=== PATIENT | female | born 1950 | race African-American/Black ===

== ENCOUNTER 2018-09-04 09:40 | Observation (INO) | payer OTHER ==
--- NOTE | 2018-09-04 10:01 | PDOC ---
History of Present Illness - General Chief Complaint: Weakness Stated Complaint: Weakness Time Seen by Provider: 09/04/18 09:46 History Source: Patient - History of Present Illness Initial Comments: 68 yo [place] resident h/o HTN, depression, dementia, schizophrenia, anxiety, Parkinsons, Type I diabetes, and COPD sent from [facility] for weakness. Patient is demented and unable to provide reliable information. Per EMS, [facility] staff said she is basically at baseline but they are concerned with her well-being and believe she should come to the ED to get evaluated. 09/04/18 10:43 Spoke to [facility], nurse in charge stated that patient was sent to ER due to increasing weakness and confusion, which is off her baseline. Will recheck her rectal temp and do stroke workup if afebile 09/04/18 10:56 Rectal temp 100.3F, will begin sepsis workup 09/04/18 11:37 EKG no significant change compared to prior 09/04/18 12:58 Pt refused flu swab and CT head Past History - Past Medical History Allergies/Adverse Reactions: Allergies Allergy/AdvReac Type Severity Reaction Status Date / Time No Known Allergies Allergy Verified 04/27/16 21:32 Home Medications: Ambulatory Orders Albuterol 0.083% Nebulizer Ashley [Ventolin 0.083% Nebulizer Soln -] 1 amp IN QID PRN 09/04/18 Aspirin 81 mg PO DAILY 09/04/18 Atorvastatin Calcium [Lipitor] 10 mg PO HS 09/04/18 Carbamazepine [Tegretol -] 200 mg PO BID 09/04/18 Furosemide [Lasix -] 40 mg PO DAILY 09/04/18 Haloperidol Decanoate [Haldol Decanoate 100] 100 mg IM MONTHLY 09/04/18 Insulin Glargine,Hum.rec.anlog [Lantus] 28 unit SQ HS 09/04/18 Insulin Lispro [Humalog] unit SQ TID 09/04/18 Lisinopril [Zestril] 40 mg PO DAILY 09/04/18 Magnesium Hydrox 2400MG/30Ml [Milk of Magnesia -] 30 ml PO ASDIR 09/04/18 Metoprolol Tartrate [Lopressor -] 25 mg PO DAILY 09/04/18 Nystatin 30 gm TP BID 09/04/18 Olanzapine [Zyprexa] 20 mg PO HS 09/04/18 Ranitidine [Zantac -] 150 mg PO DAILY 09/04/18 Rivastigmine Tartrate [Exelon (Nf) -] 4.5 mg PO BID 09/04/18 Sennosides [Senno] 8.6 mg PO HS 09/04/18 Tamsulosin HCl [Flomax] 0.4 mg PO DAILY 09/04/18 Anemia: No COPD: Yes Dementia: Yes Diabetes: Yes HTN: Yes Psychiatric Problems: Yes (SCHIZOPHRENIA, BIPOLAR,ANXIETY,) - Immunization History Immunization Up to Date: Yes - Suicide/Smoking/Psychosocial Hx Smoking History: Unknown if ever smoked Have you smoked in the past 12 months: Yes Number of Cigarettes Smoked Daily: 3 Hx Alcohol Use: No Drug/Substance Use Hx: No Substance Use Type: None Hx Substance Use Treatment: No *Physical Exam - Vital Signs Last Vital Signs Temp Pulse Resp BP Pulse Ox 98.6 F 59 L 18 130/78 95 09/04/18 09:42 09/04/18 09:42 09/04/18 09:42 09/04/18 09:42 09/04/18 09:42 - Physical Exam Respiratory/Chest: positive: Lungs Clear, Normal Breath Sounds Cardiovascular: positive: Regular Rhythm, Regular Rate, S1, S2. negative: Edema , JVD, Murmur Gastrointestinal/Abdominal: positive: Normal Bowel Sounds Neurologic: positive: Facial Droop, Numbness, Sensory Deficit, Confused, Disoriented Moderate Sedation - Procedure Monitoring Vital Signs: Procedure Monitoring Vital Signs Temperature 98.6 F 09/04/18 09:42 Pulse Rate 59 L 09/04/18 09:42 Respiratory Rate 18 09/04/18 09:42 Blood Pressure 130/78 09/04/18 09:42 O2 Sat by Pulse Oximetry (%) 95 09/04/18 09:42 ED Treatment Course - LABORATORY CBC & Chemistry Diagram: 09/04/18 11:08 09/04/18 11:08 *DC/Admit/Observation/Transfer Diagnosis at time of Disposition: Weakness Fever Qualifiers: Fever type: unspecified Qualified Code(s): R50.9 - Fever, unspecified Altered mental status Qualifiers: Altered mental status type: unspecified Qualified Code(s): R41.82 - Altered mental status, unspecified - Discharge Dispostion Decision to Admit order: Yes - Referrals Referrals: Molly Santiago MD [Primary Care Provider] - - Patient Instructions - Post Discharge Activity
--- NOTE | 2018-09-04 11:04 | PDOC ---
Attending Attestation - Resident Resident Name: Gopi Celis - [facility] HPI: 09/04/18 11:05 The patient is a 68 year old male, with a significant past medical history of dementia, depression, schizophrenia, diabetes, who presents to the emergency department via ems from [facility] for evaluation of increasing weakness and confusion in the setting of fever today. The patient is unable to provide history. As per nursing staff, the patient is not at baseline. Allergies: NKDA PCP - Dr. Santiago - Physicial Exam PE: 09/04/18 11:06 GENERAL: The patient is awake, alert, and fully oriented, in no acute distress. HEAD: Normal with no signs of trauma. EYES: Pupils equal, round and reactive to light, extraocular movements intact, sclera anicteric, conjunctiva clear with no pallor. ENT: Ears normal, nares patent, oropharynx clear without exudates. Moist mucous membranes. NECK: Normal range of motion, supple without lymphadenopathy, JVD, or masses. LUNGS: Breath sounds equal, clear to auscultation bilaterally. No wheeze/ crackles. HEART: Regular rate and rhythm, normal S1 and S2 without murmur or rub. ABDOMEN: (+) grimacing to suprapubic palpation. Soft/nondistended. BS wnl. No guarding or rebound. No palpable masses. No hepatosplenomegaly. EXTREMITIES: Normal range of motion, no edema. No clubbing or cyanosis. No cords, erythema, or tenderness. NEUROLOGICAL: Baseline neuro deficits. baseline facial droop. Cranial nerves II through XII grossly intact. SKIN: Warm, Dry, normal turgor, no rashes or lesions noted. <Cammie Moreno - Last Filed: 09/04/18 11:08> - Critical Care Time Total Critical Care Time: 30 Critical Care Statement: The care of this patient involved high complexity decision making to prevent further life threatening deterioration of the patient 's condition and/or to evaluate & treat vital organ system(s) failure or risk of failure. - Medical Decision Making 09/04/18 11:19 68y/o F sent [place] with AMS/increased generalized weakness. h/o cva without new deficits, found to be febrile on rectal temp. sepsis protocol initiated antibiotics, anti-pyretics cxr, ekg admission <Ezra Espinoza - Last Filed: 09/04/18 11:32> Heart Score/ECG Review #1 ECG reviewed & interpreted by me at: 11:19 General ECG Interpretation: Sinus Rhythm (slight bradycardia, LVH with lateral strain pattern), Normal Rate (51), Normal Intervals (qtc 414; LAFB) Compared to previous ECG there are: No significant change (c/w 04/2016) <Ezra Espinoza - Last Filed: 09/04/18 11:32> Attestations - Attestations 09/04/18 11:07 Documentation prepared by Cammie Moreno, acting as medical laboratory technical officer for Ezra Espinoza MD <Cammie Moreno - Last Filed: 09/04/18 11:08>
[2018-09-04 11:25] LABS: BASO % 0.3 % (0-2.0); EOS % 1.4 % (0-4.5); HEMATOCRIT 37.3 % (32.4-45.2); HEMOGLOBIN 12.6 GM/dL (10.7-15.3); LYMPH % 22.6 % (8-40); MCH 26.8 pg (25.7-33.7); MCHC 33.8 g/dl (32.0-36.0); MEAN CELL VOLUME 79.4 fl (80-96); MEAN PLT VOLUME 8.1 fl (7.5-11.1); MONO % 12.1 % (3.8-10.2); NEUT % 63.6 % (42.8-82.8); PLATELET COUNT 295 K/MM3 (134-434); RDW 15.3 % (11.6-15.6); WHITE BLOOD COUNT 8.4 K/mm3 (4.0-10.0)
[2018-09-04 11:47] LABS: URINE APPEARANCE CLEAR; URINE BILIRUBIN NEGATIVE (<2.0 mg/dL); URINE COLOR YELLOW; URINE GLUCOSE (UA) NEGATIVE (NEGATIVE); URINE KETONE NEGATIVE (NEGATIVE)
[2018-09-04 11:48] LABS: PH,URINE 5.5 (5.0-8.0); URINE LEUK ESTERASE NEGATIVE (NEGATIVE); URINE NITRITE NEGATIVE (NEGATIVE); URINE PROTEIN TRACE (NEGATIVE); URINE UROBILINOGEN 0.2 mg/dL (0.2-1.0)
[2018-09-04] MEDS ORDERED: ACETAMINOPHEN 1000 MG/100 ML VIAL (NON FORMULARY) IVPB ONE (11:54)
[2018-09-04] MEDS ORDERED: ACETAMINOPHEN 500 MG TABLET (FP) PO ONE (11:55)
[2018-09-04] MEDS ORDERED: ACETAMINOPHEN 325 MG TABLET (FP) ONE (12:05)
[2018-09-04 12:13] LABS: ALBUMIN 3.2 g/dl (3.4-5.0); ALK PHOS 92 U/L (45-117); ANION GAP 5 MMOL/L (8-16); BILIRUBIN,TOTAL 0.4 mg/dL (0.2-1); BLOOD UREA NITROGEN 29 mg/dL (7-18); CALCIUM 9.2 mg/dL (8.5-10.1); CHLORIDE 102 mmol/L (98-107); CO2 35 mmol/L (21-32); CREATININE 1.5 mg/dL (0.55-1.3); GLUCOSE,RANDOM 76 mg/dL (74-106); MAGNESIUM 2.3 mg/dL (1.8-2.4); PHOSPHOROUS 3.9 mg/dL (2.5-4.9); POTASSIUM 3.7 mmol/L (3.5-5.1); SGOT/AST 34 U/L (15-37); SGPT/ALT 22 U/L (13-61); SODIUM 142 mmol/L (136-145); TOT PROT 8.4 g/dl (6.4-8.2)
[2018-09-04 12:41] LABS: PROTHROMBIN TIME (PATIENT) 11.8 SEC (9.7-13.0)
[2018-09-04 12:44] LABS: ACTIVATED PTT 29.7 SECONDS (25.2-36.5)
[2018-09-04 13:31] LABS: VENOUS PC02 60.9 mmHg (41-51); VENOUS PH 7.38 (7.31-7.41); VENOUS PO2 36.6 mmHg (30-40)
[2018-09-04] MEDS ORDERED: ALBUTEROL SO4 0.083% IH SOL 2.5 MG/3 ML VIAL.NEB. NEB PRN (14:03)
[2018-09-04 16:27] VITALS: BMI 29.2
[2018-09-04] MEDS: INSULIN SLIDING SCALE (NOVOLOG) 1 VIAL SQ SCH (17:26)
[2018-09-04] MEDS: RIVASTIGMINE TARTRATE 1.5 MG CAPSULE PO SCH (22:06)
[2018-09-04] MEDS: ATORVASTATIN CA 10 MG TABLET (FP) PO SCH (22:07)
[2018-09-04] MEDS: SENNOSIDES 8.6MG TABLET (FP) PO SCH (22:08)
[2018-09-04] MEDS: carBAMazepine 200 MG TABLET PO SCH (22:08)
[2018-09-04] MEDS: INSULIN (LEVEMIR) 100 UNITS/ML UNITS SQ SCH (22:11)
[2018-09-04] MEDS: OLANZapine 10 MG TABLET PO SCH (22:15)
[2018-09-05] MEDS: INSULIN SLIDING SCALE (NOVOLOG) 1 VIAL SQ SCH ×3 (06:22→17:11)
[2018-09-05] MEDS ORDERED: PT OWN MED DRAWER 7, Y5N ONE ×3 (07:11→10:30)
[2018-09-05] MEDS ORDERED: INSULIN (NOVOLOG) ASPART 100 UNITS/ML 10ML VIAL ONE (07:12)
[2018-09-05] MEDS ORDERED: INSULIN (LEVEMIR) 100 UNITS/ML UNITS SQ ONE (07:12)
[2018-09-05] MEDS: FUROSEMIDE 40 MG TABLET (FP) PO SCH (10:26)
[2018-09-05] MEDS: RANITIDINE HCL 150 MG TABLET (FP) PO SCH (10:26)
[2018-09-05] MEDS: ASPIRIN 81 MG CHEWABLE TABLETS PO SCH (10:26)
[2018-09-05] MEDS: METOPROLOL TARTRATE 25 MG TABLET (FP) PO SCH (10:26)
[2018-09-05] MEDS: carBAMazepine 200 MG TABLET PO SCH ×2 (10:27→23:12)
[2018-09-05] MEDS: RIVASTIGMINE TARTRATE 1.5 MG CAPSULE PO SCH ×2 (10:27→23:11)
[2018-09-05] MEDS: LISINOPRIL 20 MG TABLET (FP) PO SCH (10:31)
--- NOTE | 2018-09-05 10:37 | HP ---
Admitting History and Physical - Primary Care Physician PCP: Molly Santiago - Admission History of Present Illness: patient seen and examined. Chart reviewed As per emergency room records 68 yo [place] resident h/o HTN, depression, dementia, schizophrenia, anxiety, Parkinsons, Type I diabetes, and COPD sent from [facility] for weakness. Patient is demented and unable to provide reliable information. Per EMS, [facility] staff said she is basically at baseline but they are concerned with her well-being and believe she should come to the ED to get evaluated. patient noted to have low-grade temperature Given broad-spectrum antibiotics Flu was negative Chest x-ray----atelectasis----no acute infiltrate CT head----no acute findings Patient admitted Patient comfortable at time of my examination Back to baseline now complains History Source: Medical Record Limitations to Obtaining History: Clinical Condition, Dementia - Past Medical History Cardiovascular: Yes: HTN, Hyperlipdemia Pulmonary: Yes: COPD ...: No Psych: Yes: Bipolar, Schizophrenia Endocrine: Yes: Diabetes Mellitus - Smoking History Smoking history: Unknown if ever smoked Have you smoked in the past 12 months: No Aproximately how many cigarettes per day: 0 - Alcohol/Substance Use Hx Alcohol Use: No - Social History History of Recent Travel: No Home Medications - Allergies Allergies/Adverse Reactions: Allergies Allergy/AdvReac Type Severity Reaction Status Date / Time No Known Allergies Allergy Verified 04/27/16 21:32 - Home Medications Home Medications: Ambulatory Orders Albuterol 0.083% Nebulizer Ashley [Ventolin 0.083% Nebulizer Soln -] 1 amp IN QID PRN 09/04/18 Aspirin 81 mg PO DAILY 09/04/18 Atorvastatin Calcium [Lipitor] 10 mg PO HS 09/04/18 Carbamazepine [Tegretol -] 200 mg PO BID 09/04/18 Furosemide [Lasix -] 40 mg PO DAILY 09/04/18 Haloperidol Decanoate [Haldol Decanoate 100] 100 mg IM MONTHLY 09/04/18 Insulin Glargine,Hum.rec.anlog [Lantus] 28 unit SQ HS 09/04/18 Insulin Lispro [Humalog] unit SQ TID 09/04/18 Lisinopril [Zestril] 40 mg PO DAILY 09/04/18 Magnesium Hydrox 2400MG/30Ml [Milk of Magnesia -] 30 ml PO ASDIR 09/04/18 Metoprolol Tartrate [Lopressor -] 25 mg PO DAILY 09/04/18 Nystatin 30 gm TP BID 09/04/18 Olanzapine [Zyprexa] 20 mg PO HS 09/04/18 Ranitidine [Zantac -] 150 mg PO DAILY 09/04/18 Rivastigmine Tartrate [Exelon (Nf) -] 4.5 mg PO BID 09/04/18 Sennosides [Senno] 8.6 mg PO HS 09/04/18 Tamsulosin HCl [Flomax] 0.4 mg PO DAILY 09/04/18 Review of Systems - Review of Systems Constitutional: reports: No Symptoms Eyes: reports: No Symptoms Neck: reports: No Symptoms Cardiovascular: reports: No Symptoms Respiratory: reports: No Symptoms Gastrointestinal: reports: No Symptoms Neurological: reports: No Symptoms Psychiatric: reports: Other (calm) Physical Examination Vital Signs: Vital Signs Temperature 98.1 F 09/05/18 09:05 Pulse Rate 59 L 09/05/18 09:05 Respiratory Rate 18 09/05/18 09:05 Blood Pressure 172/75 H 09/05/18 09:05 O2 Sat by Pulse Oximetry (%) 95 09/05/18 00:52 Constitutional: Yes: No Distress, Calm Eyes: Yes: Conjunctiva Clear Neck: Yes: Supple Cardiovascular: Yes: Regular Rate and Rhythm Respiratory: Yes: Rhonchi Gastrointestinal: Yes: Normal Bowel Sounds, Soft Edema: No Neurological: Yes: Alert Labs: CBC, BMP 09/04/18 11:08 09/04/18 11:08 Imaging - Results Chest X-ray: Report Reviewed Cat Scan: Report Reviewed EKG: Report Reviewed Problem List - Problems (1) Chronic obstructive pulmonary disease Code(s): J44.9 - CHRONIC OBSTRUCTIVE PULMONARY DISEASE, UNSPECIFIED (2) Renal insufficiency Code(s): N28.9 - DISORDER OF KIDNEY AND URETER, UNSPECIFIED (3) Altered mental status Code(s): R41.82 - ALTERED MENTAL STATUS, UNSPECIFIED Qualifiers: Altered mental status type: unspecified Qualified Code(s): R41.82 - Altered mental status, unspecified (4) Fever Code(s): R50.9 - FEVER, UNSPECIFIED Qualifiers: Fever type: unspecified Qualified Code(s): R50.9 - Fever, unspecified (5) Diabetes Code(s): E11.9 - TYPE 2 DIABETES MELLITUS WITHOUT COMPLICATIONS Qualifiers: Diabetes mellitus type: type 2 Diabetes mellitus terminal clerk insulin use: without terminal clerk use Diabetes mellitus complication status: with unspecified complications Qualified Code(s): E11.8 - Type 2 diabetes mellitus with unspecified complications (6) Hypertension Code(s): I10 - ESSENTIAL (PRIMARY) HYPERTENSION Qualifiers: Hypertension type: essential hypertension Qualified Code(s): I10 - Essential (primary) hypertension (7) Parkinson disease Code(s): G20 - PARKINSON'S DISEASE (8) Schizophrenia Code(s): F20.9 - SCHIZOPHRENIA, UNSPECIFIED Qualifiers: Schizophrenia type: unspecified Qualified Code(s): F20.9 - Schizophrenia, unspecified Assessment/Plan clinically comfortable Monitor for fever observe off abx ct chest u/s kidneys dvt prophylaxis will follow
--- NOTE | 2018-09-05 11:11 | EKG ---
Test Reason : Blood Pressure : / mmHG Vent. Rate : 051 BPM Atrial Rate : 051 BPM P-R Int : 194 ms QRS Dur : 120 ms QT Int : 450 ms P-R-T Axes : 029 -53 189 degrees QTc Int : 414 ms SINUS BRADYCARDIA LEFT ANTERIOR FASCICULAR BLOCK LEFT VENTRICULAR HYPERTROPHY WITH QRS WIDENING ABNORMAL ECG Confirmed by YANET FISHER MD ([id number]) on 09/05/2018 11:11:21 AM Referred By: Confirmed By:YANET FISHER MD
[2018-09-05] MEDS: INSULIN (LEVEMIR) 100 UNITS/ML UNITS SQ SCH ×2 (22:00→23:12)
[2018-09-05] MEDS: SENNOSIDES 8.6MG TABLET (FP) PO SCH (23:11)
[2018-09-05] MEDS: HEPARIN NA (PORCINE) 5,000 UNITS/ML 1ML VIAL SQ SCH (23:11)
[2018-09-05] MEDS: ATORVASTATIN CA 10 MG TABLET (FP) PO SCH (23:11)
[2018-09-05] MEDS: OLANZapine 10 MG TABLET PO SCH (23:11)
[2018-09-06] MEDS: ACETAMINOPHEN 325 MG TABLET (FP) PO PRN ×2 (00:53→22:17)
[2018-09-06] MEDS: INSULIN SLIDING SCALE (NOVOLOG) 1 VIAL SQ SCH ×3 (06:26→17:43)
[2018-09-06 06:55] LABS: BASO % 0.8 % (0-2.0); EOS % 3.7 % (0-4.5); HEMOGLOBIN 12.2 GM/dL (10.7-15.3); LYMPH % 43.3 % (8-40); MCH 26.7 pg (25.7-33.7); MCHC 33.9 g/dl (32.0-36.0); MEAN CELL VOLUME 78.6 fl (80-96); MEAN PLT VOLUME 7.9 fl (7.5-11.1); MONO % 11.1 % (3.8-10.2); NEUT % 41.1 % (42.8-82.8); PLATELET COUNT 288 K/MM3 (134-434); RBC 4.58 M/mm3 (3.60-5.2); RDW 14.9 % (11.6-15.6); WHITE BLOOD COUNT 5.8 K/mm3 (4.0-10.0)
[2018-09-06 07:48] LABS: ALBUMIN 2.8 g/dl (3.4-5.0); ALK PHOS 77 U/L (45-117); ANION GAP 5 MMOL/L (8-16); BILIRUBIN,TOTAL 0.3 mg/dL (0.2-1); BLOOD UREA NITROGEN 30 mg/dL (7-18); CALCIUM 9.1 mg/dL (8.5-10.1); CHLORIDE 105 mmol/L (98-107); CO2 34 mmol/L (21-32); CREATININE 1.2 mg/dL (0.55-1.3); GLUCOSE,RANDOM 73 mg/dL (74-106); POTASSIUM 3.5 mmol/L (3.5-5.1); SGOT/AST 25 U/L (15-37); SGPT/ALT 18 U/L (13-61); SODIUM 144 mmol/L (136-145); TOT PROT 7.6 g/dl (6.4-8.2)
[2018-09-06] MEDS ORDERED: PT OWN MED DRAWER 7, Y5N ONE ×3 (09:48→21:17)
[2018-09-06] MEDS: ASPIRIN 81 MG CHEWABLE TABLETS PO SCH (10:18)
[2018-09-06] MEDS: HEPARIN NA (PORCINE) 5,000 UNITS/ML 1ML VIAL SQ SCH ×2 (10:18→22:14)
[2018-09-06] MEDS: LISINOPRIL 20 MG TABLET (FP) PO SCH (10:19)
[2018-09-06] MEDS: RANITIDINE HCL 150 MG TABLET (FP) PO SCH (10:19)
[2018-09-06] MEDS: RIVASTIGMINE TARTRATE 1.5 MG CAPSULE PO SCH ×2 (10:19→22:16)
[2018-09-06] MEDS: METOPROLOL TARTRATE 25 MG TABLET (FP) PO SCH (10:20)
[2018-09-06] MEDS: carBAMazepine 200 MG TABLET PO SCH ×2 (10:20→22:17)
[2018-09-06] MEDS: FUROSEMIDE 40 MG TABLET (FP) PO SCH (10:20)
--- NOTE | 2018-09-06 10:58 | CON.CARD ---
Consult Consult Specialty:: Cardiology Referred by:: Dr. Molly Santiago Reason for Consultation:: Cardiac evaluation - History of Present Illness Chief Complaint: Generalized weakness History of Present Illness: Patient is a 68 year old female (resident of [place]) with underlying history of HTN , depression, organic brain/dementia, schizophrenia, anxiety, Parkinson's disease, DM and COPD who presented with weakness from the [place]. History was obtained from medical record. She denies chest pain, SOB or palpitations. She denies fever or chills. She denies headache or lightheadedness. ECG was noted with T wave inversion in inferior and lateral leads thus cardiology consultation was called prior to discharge today back to [place]. Overall, she appears comfortable when seen today. CT of head was unremarkable without evidence of CVA. She was given empiric antibiotic for low grade fever. - History Source History Provided By: Patient, Medical Record Limitations to Obtaining History: Dementia - Past Medical History Cardio/Vascular: Yes: HTN, Hyperlipdemia Pulmonary: Yes: COPD Psych: Yes: Bipolar, Schizophrenia Endocrine: Yes: Diabetes Mellitus - Alcohol/Substance Use Hx Alcohol Use: No - Smoking History Smoking history: Unknown if ever smoked Have you smoked in the past 12 months: No Aproximately how many cigarettes per day: 0 - Social History Usual Living Arrangement: [facility] History of Recent Travel: No Home Medications - Allergies Allergies/Adverse Reactions: Allergies Allergy/AdvReac Type Severity Reaction Status Date / Time No Known Allergies Allergy Verified 04/27/16 21:32 - Home Medications Home Medications: Ambulatory Orders Albuterol 0.083% Nebulizer Ashley [Ventolin 0.083% Nebulizer Soln -] 1 amp IN QID PRN 09/04/18 Aspirin 81 mg PO DAILY 09/04/18 Atorvastatin Calcium [Lipitor] 10 mg PO HS 09/04/18 Carbamazepine [Tegretol -] 200 mg PO BID 09/04/18 Furosemide [Lasix -] 40 mg PO DAILY 09/04/18 Haloperidol Decanoate [Haldol Decanoate (Long-Acting) -] 100 mg IM MONTHLY 09/04 Insulin Glargine,Hum.rec.anlog [Lantus] 28 unit SQ HS 09/04/18 Insulin Lispro [Humalog Kwikpen U-100] unit SQ TID 09/04/18 Lisinopril [Zestril] 40 mg PO DAILY 09/04/18 Magnesium Hydrox 2400MG/30Ml [Milk of Magnesia -] 30 ml PO ASDIR 09/04/18 Metoprolol Tartrate [Lopressor -] 25 mg PO DAILY 09/04/18 Nystatin 30 gm TP BID 09/04/18 Olanzapine [Zyprexa] 20 mg PO HS 09/04/18 Ranitidine [Zantac -] 150 mg PO DAILY 09/04/18 Rivastigmine Tartrate [Exelon (Nf) -] 4.5 mg PO BID 09/04/18 Sennosides [Senno] 8.6 mg PO HS 09/04/18 Tamsulosin HCl [Flomax -] 0.4 mg PO DAILY 09/04/18 Acetaminophen [Tylenol .Regular Strength -] 650 mg PO Q4H PRN tablet 09/06/18 Heparin - 5,000 unit SQ BID vial 09/06/18 Family Disease History - Family Disease History Family History: Unable to Obtain Review of Systems - Review of Systems Constitutional: reports: Weakness. denies: Chills, Fever Cardiovascular: denies: Chest Pain, Palpitations, Shortness of Breath Respiratory: denies: Cough, Orthopnea, PND, SOB, SOB on Exertion Gastrointestinal: denies: Abdominal Pain, Constipation, Diarrhea, Melena, Nausea , Rectal Bleeding Neurological: denies: Dizziness, Headache, Seizure, Syncope Vital Signs: Vital Signs Temperature 97.7 F 09/06/18 10:00 Pulse Rate 64 09/06/18 10:00 Respiratory Rate 20 09/06/18 10:00 Blood Pressure 151/79 09/06/18 10:00 O2 Sat by Pulse Oximetry (%) 96 09/05/18 22:00 HENT: Yes: Atraumatic Neck: Yes: Supple Respiratory: Yes: CTA Bilaterally Gastrointestinal: Yes: Normal Bowel Sounds, Soft. No: Tenderness Cardiovascular: Yes: Regular Rate and Rhythm JVD: No PMI: Non-Displaced Heart Sounds: Yes: S1, S2 Edema: No - Other Data Labs, Other Data: CBC, BMP 09/06/18 05:20 09/06/18 05:20 INR, PTT INR 1.00 (0.83-1.09) 09/04/18 11:08 Sinus with T abnormality in inferior and lateral leads, LVH Imaging - Results Chest X-ray: Report Reviewed (Right basal atelectasis) Cat Scan: Report Reviewed (Chest CT noted Head CT noted moderate atrophy) EKG: Report Reviewed Problem List - Problems (1) Hypercholesterolemia Code(s): E78.00 - PURE HYPERCHOLESTEROLEMIA, UNSPECIFIED (2) Altered mental status Code(s): R41.82 - ALTERED MENTAL STATUS, UNSPECIFIED Qualifiers: Altered mental status type: unspecified Qualified Code(s): R41.82 - Altered mental status, unspecified (3) Chronic obstructive pulmonary disease Code(s): J44.9 - CHRONIC OBSTRUCTIVE PULMONARY DISEASE, UNSPECIFIED (4) Renal insufficiency Code(s): N28.9 - DISORDER OF KIDNEY AND URETER, UNSPECIFIED (5) Diabetes Code(s): E11.9 - TYPE 2 DIABETES MELLITUS WITHOUT COMPLICATIONS Qualifiers: Diabetes mellitus type: type 2 Diabetes mellitus assisted insulin use: without assisted use Diabetes mellitus complication status: with unspecified complications Qualified Code(s): E11.8 - Type 2 diabetes mellitus with unspecified complications (6) Hypertension Code(s): I10 - ESSENTIAL (PRIMARY) HYPERTENSION Qualifiers: Hypertension type: essential hypertension Qualified Code(s): I10 - Essential (primary) hypertension (7) Parkinson disease Code(s): G20 - PARKINSON'S DISEASE (8) Schizophrenia Code(s): F20.9 - SCHIZOPHRENIA, UNSPECIFIED Qualifiers: Schizophrenia type: unspecified Qualified Code(s): F20.9 - Schizophrenia, unspecified Assessment/Plan 1. Abnormal ECG, possible underlying CAD vs. LVH due to HTN 2. HTN 3. Hypercholesterolemia 4. DM 5. Bipolar/schizophrenia 6. Organic brain/dementia PLAN: 1. Continue Lopressor and Prinivil as tolerated 2. ASA 3. Atorvastatin 4. Patient may return to [place] cardiac standpoint. 5. Further work up may be done in the future as outpatient including echocardiography and stress testing if clinically feasible. Otherwise continue conservative management John Lara MD
--- NOTE | 2018-09-06 11:00 | DS ---
Physical Examination Vital Signs: Vital Signs Temperature 97.7 F 09/06/18 10:00 Pulse Rate 64 09/06/18 10:00 Respiratory Rate 20 09/06/18 10:00 Blood Pressure 151/79 09/06/18 10:00 O2 Sat by Pulse Oximetry (%) 96 09/05/18 22:00 Findings/Remarks: feels well no complains Baseline afebrile Constitutional: Yes: No Distress Eyes: Yes: Conjunctiva Clear Neck: Yes: Supple Cardiovascular: Yes: Regular Rate and Rhythm Respiratory: Yes: CTA Bilaterally Gastrointestinal: Yes: Soft Edema: No Neurological: Yes: Alert Psychiatric: Yes: Alert Labs: CBC, BMP 09/06/18 05:20 09/06/18 05:20 Discharge Summary Reason For Visit: FEVER;WEAKNESS;ALTERED MENTAL STATUS Current Active Problems Altered mental status (Acute) Chronic obstructive pulmonary disease (Acute) Fever (Acute) Renal insufficiency (Acute) Weakness (Acute) Hospital Course: 68 yo [place] resident h/o HTN, depression, dementia, schizophrenia, anxiety, Parkinsons, Type I diabetes, and COPD sent from [facility] for weakness. noted to have low grade temp. observed off abx ct chest -- see report-- in summary shows Left Thyromegaly-- Do u/s as out pt-- will add tsh to todays labs Unchanged small Anterior mediastinal LN Stable Adrenal Adenoma s/p cholecystectomy No acute chest pathology u/s kidneys -- no acute pathology Abnormal EKg-- Cardiology consult requested overall stable will d/c back to [facility] after cardiology eval Discussed with nursing staff also. Meds reconcilled also cultures -ve so far Condition: Stable - Instructions Disposition: RETIREMENT FACILITY - Home Medications Comprehensive Discharge Medication List: Ambulatory Orders Albuterol 0.083% Nebulizer Ashley [Ventolin 0.083% Nebulizer Soln -] 1 amp IN QID PRN 09/04/18 Aspirin 81 mg PO DAILY 09/04/18 Atorvastatin Calcium [Lipitor] 10 mg PO HS 09/04/18 Carbamazepine [Tegretol -] 200 mg PO BID 09/04/18 Furosemide [Lasix -] 40 mg PO DAILY 09/04/18 Haloperidol Decanoate [Haldol Decanoate (Long-Acting) -] 100 mg IM MONTHLY 09/04 Insulin Glargine,Hum.rec.anlog [Lantus] 28 unit SQ HS 09/04/18 Insulin Lispro [Humalog Kwikpen U-100] unit SQ TID 09/04/18 Lisinopril [Zestril] 40 mg PO DAILY 09/04/18 Magnesium Hydrox 2400MG/30Ml [Milk of Magnesia -] 30 ml PO ASDIR 09/04/18 Metoprolol Tartrate [Lopressor -] 25 mg PO DAILY 09/04/18 Nystatin 30 gm TP BID 09/04/18 Olanzapine [Zyprexa] 20 mg PO HS 09/04/18 Ranitidine [Zantac -] 150 mg PO DAILY 09/04/18 Rivastigmine Tartrate [Exelon (Nf) -] 4.5 mg PO BID 09/04/18 Sennosides [Senno] 8.6 mg PO HS 09/04/18 Tamsulosin HCl [Flomax -] 0.4 mg PO DAILY 09/04/18 Acetaminophen [Tylenol .Regular Strength -] 650 mg PO Q4H PRN tablet 09/06/18 Heparin - 5,000 unit SQ BID vial 09/06/18
[2018-09-06] MEDS ORDERED: INSULIN (NOVOLOG) ASPART 100 UNITS/ML 10ML VIAL ONE (21:16)
[2018-09-06] MEDS: SENNOSIDES 8.6MG TABLET (FP) PO SCH (22:15)
[2018-09-06] MEDS: ATORVASTATIN CA 10 MG TABLET (FP) PO SCH (22:15)
[2018-09-06] MEDS: OLANZapine 10 MG TABLET PO SCH (22:15)
[2018-09-07] MEDS: INSULIN SLIDING SCALE (NOVOLOG) 1 VIAL SQ SCH ×3 (06:12→16:21)
[2018-09-07] MEDS ORDERED: INSULIN (LEVEMIR) 100 UNITS/ML UNITS SQ ONE (07:01)
[2018-09-07] MEDS ORDERED: INSULIN (NOVOLOG) ASPART 100 UNITS/ML 10ML VIAL ONE ×2 (07:02→20:57)
--- NOTE | 2018-09-07 09:18 | PN ---
Progress Note, Physician Chief Complaint: Not in distress History of Present Illness: Patient was seen and examined. Awake and alert. Chart was reviewed Denies chest pain, SOB or palpitations - Current Medication List Current Medications: Active Medications Acetaminophen (Tylenol -) 650 mg PO Q4H PRN PRN Reason: PAIN LEVEL 6-10 Last Admin: 09/06/18 22:17 Dose: 650 mg Albuterol Sulfate (Ventolin 0.083% Nebulizer Soln -) 1 amp NEB Q6H PRN PRN Reason: ASTHMA Aspirin (Asa -) 81 mg PO DAILY [facility] Last Admin: 09/06/18 10:18 Dose: 81 mg Atorvastatin Calcium (Lipitor -) 10 mg PO HS [facility] Last Admin: 09/06/18 22:15 Dose: 10 mg Carbamazepine (Tegretol -) 200 mg PO BID [facility] Last Admin: 09/06/18 22:17 Dose: 200 mg Furosemide (Lasix -) 40 mg PO DAILY [facility] Last Admin: 09/06/18 10:20 Dose: 40 mg Heparin Sodium (Porcine) (Heparin -) 5,000 unit SQ BID [facility] Last Admin: 09/06/18 22:14 Dose: 5,000 unit Insulin Aspart (Novolog Vial Sliding Scale -) 1 vial SQ TIDAC [facility]; Protocol Last Admin: 09/07/18 06:12 Dose: Not Given Insulin Detemir (Levemir Vial) 28 units SQ [facility] Last Admin: 09/05/18 23:12 Dose: 28 unit Lisinopril (Prinivil) 40 mg PO DAILY [facility] Last Admin: 09/06/18 10:19 Dose: 40 mg Metoprolol Tartrate (Lopressor -) 25 mg PO DAILY [facility] Last Admin: 09/06/18 10:20 Dose: 25 mg Olanzapine (Zyprexa -) 20 mg PO [facility] Last Admin: 09/06/18 22:15 Dose: 20 mg Ranitidine HCl (Zantac -) 150 mg PO DAILY [facility] Last Admin: 09/06/18 10:19 Dose: 150 mg Rivastigmine Tartrate (Exelon (Nf) -) 4.5 mg PO BID [facility] Last Admin: 09/06/18 22:16 Dose: 4.5 mg Senna (Senna -) 1 tab PO [facility] Last Admin: 09/06/18 22:15 Dose: 1 tab - Objective Vital Signs: Vital Signs Temperature 98.5 F 09/07/18 08:47 Pulse Rate 61 09/07/18 08:47 Respiratory Rate 20 09/07/18 08:47 Blood Pressure 159/79 09/07/18 08:47 O2 Sat by Pulse Oximetry (%) 96 09/07/18 02:00 Neck: Yes: Supple Cardiovascular: Yes: Regular Rate and Rhythm, S1, S2 Respiratory: Yes: CTA Bilaterally Gastrointestinal: Yes: Normal Bowel Sounds, Soft. No: Tenderness Edema: No Labs: CBC, BMP 09/06/18 05:20 09/06/18 05:20 Problem List - Problems (1) Hypercholesterolemia Code(s): E78.00 - PURE HYPERCHOLESTEROLEMIA, UNSPECIFIED (2) Altered mental status Code(s): R41.82 - ALTERED MENTAL STATUS, UNSPECIFIED Qualifiers: Altered mental status type: unspecified Qualified Code(s): R41.82 - Altered mental status, unspecified (3) Chronic obstructive pulmonary disease Code(s): J44.9 - CHRONIC OBSTRUCTIVE PULMONARY DISEASE, UNSPECIFIED (4) Renal insufficiency Code(s): N28.9 - DISORDER OF KIDNEY AND URETER, UNSPECIFIED (5) Diabetes Code(s): E11.9 - TYPE 2 DIABETES MELLITUS WITHOUT COMPLICATIONS Qualifiers: Diabetes mellitus type: type 2 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: without equipment operator intermodal yard use Diabetes mellitus complication status: with unspecified complications Qualified Code(s): E11.8 - Type 2 diabetes mellitus with unspecified complications (6) Hypertension Code(s): I10 - ESSENTIAL (PRIMARY) HYPERTENSION Qualifiers: Hypertension type: essential hypertension Qualified Code(s): I10 - Essential (primary) hypertension (7) Parkinson disease Code(s): G20 - PARKINSON'S DISEASE (8) Schizophrenia Code(s): F20.9 - SCHIZOPHRENIA, UNSPECIFIED Qualifiers: Schizophrenia type: unspecified Qualified Code(s): F20.9 - Schizophrenia, unspecified Assessment/Plan 1. Abnormal ECG, possible underlying CAD vs. LVH due to HTN 2. HTN 3. Hypercholesterolemia 4. DM 5. Bipolar/schizophrenia 6. Organic brain/dementia PLAN: 1. Continue Lopressor and Prinivil as tolerated 2. ASA 3. Atorvastatin 4. Patient may return to [place] cardiac standpoint. 5. Further work up may be done in the future as outpatient including echocardiography and stress testing if clinically feasible. Otherwise continue conservative management Sang H. Jane MD
[2018-09-07] MEDS ORDERED: PT OWN MED DRAWER 7, Y5N ONE (09:22)
[2018-09-07] MEDS: carBAMazepine 200 MG TABLET PO SCH ×2 (09:51→21:38)
[2018-09-07] MEDS: RIVASTIGMINE TARTRATE 1.5 MG CAPSULE PO SCH ×2 (09:52→21:38)
[2018-09-07] MEDS: HEPARIN NA (PORCINE) 5,000 UNITS/ML 1ML VIAL SQ SCH ×2 (09:52→21:39)
[2018-09-07] MEDS: FUROSEMIDE 40 MG TABLET (FP) PO SCH (09:53)
[2018-09-07] MEDS: RANITIDINE HCL 150 MG TABLET (FP) PO SCH (09:53)
[2018-09-07] MEDS: ASPIRIN 81 MG CHEWABLE TABLETS PO SCH (09:53)
[2018-09-07] MEDS: LISINOPRIL 20 MG TABLET (FP) PO SCH (09:53)
[2018-09-07] MEDS: METOPROLOL TARTRATE 25 MG TABLET (FP) PO SCH (09:53)
--- NOTE | 2018-09-07 10:30 | PN ---
Progress Note, Physician History of Present Illness: comfortable no new issues - Current Medication List Current Medications: Active Medications Acetaminophen (Tylenol -) 650 mg PO Q4H PRN PRN Reason: PAIN LEVEL 6-10 Last Admin: 09/06/18 22:17 Dose: 650 mg Albuterol Sulfate (Ventolin 0.083% Nebulizer Soln -) 1 amp NEB Q6H PRN PRN Reason: ASTHMA Aspirin (Asa -) 81 mg PO DAILY [facility] Last Admin: 09/07/18 09:53 Dose: 81 mg Atorvastatin Calcium (Lipitor -) 10 mg PO [facility] Last Admin: 09/06/18 22:15 Dose: 10 mg Carbamazepine (Tegretol -) 200 mg PO BID [facility] Last Admin: 09/07/18 09:51 Dose: 200 mg Furosemide (Lasix -) 40 mg PO DAILY [facility] Last Admin: 09/07/18 09:53 Dose: 40 mg Heparin Sodium (Porcine) (Heparin -) 5,000 unit SQ BID [facility] Last Admin: 09/07/18 09:52 Dose: 5,000 unit Insulin Aspart (Novolog Vial Sliding Scale -) 1 vial SQ TIDAC [facility]; Protocol Last Admin: 09/07/18 06:12 Dose: Not Given Insulin Detemir (Levemir Vial) 28 units SQ [facility] Last Admin: 09/05/18 23:12 Dose: 28 unit Lisinopril (Prinivil) 40 mg PO DAILY [facility] Last Admin: 09/07/18 09:53 Dose: 40 mg Metoprolol Tartrate (Lopressor -) 25 mg PO DAILY [facility] Last Admin: 09/07/18 09:53 Dose: 25 mg Olanzapine (Zyprexa -) 20 mg PO [facility] Last Admin: 09/06/18 22:15 Dose: 20 mg Ranitidine HCl (Zantac -) 150 mg PO DAILY [facility] Last Admin: 09/07/18 09:53 Dose: 150 mg Rivastigmine Tartrate (Exelon (Nf) -) 4.5 mg PO BID [facility] Last Admin: 09/07/18 09:52 Dose: 4.5 mg Senna (Senna -) 1 tab PO [facility] Last Admin: 09/06/18 22:15 Dose: 1 tab - Objective Vital Signs: Vital Signs Temperature 98.5 F 09/07/18 08:47 Pulse Rate 61 09/07/18 08:47 Respiratory Rate 20 03/17/19 08:47 Blood Pressure 159/79 09/07/18 08:47 O2 Sat by Pulse Oximetry (%) 96 09/07/18 02:00 Constitutional: Yes: No Distress Neck: Yes: Supple Cardiovascular: Yes: Regular Rate and Rhythm Respiratory: Yes: CTA Bilaterally Gastrointestinal: Yes: Soft Edema: No Neurological: Yes: Alert Labs: CBC, BMP 09/06/18 05:20 09/06/18 05:20 INR, PTT INR 1.00 (0.83-1.09) 09/04/18 11:08 Problem List - Problems (1) Chronic obstructive pulmonary disease Code(s): J44.9 - CHRONIC OBSTRUCTIVE PULMONARY DISEASE, UNSPECIFIED (2) Renal insufficiency Code(s): N28.9 - DISORDER OF KIDNEY AND URETER, UNSPECIFIED (3) Altered mental status Code(s): R41.82 - ALTERED MENTAL STATUS, UNSPECIFIED Qualifiers: Altered mental status type: unspecified Qualified Code(s): R41.82 - Altered mental status, unspecified (4) Fever Code(s): R50.9 - FEVER, UNSPECIFIED Qualifiers: Fever type: unspecified Qualified Code(s): R50.9 - Fever, unspecified (5) Diabetes Code(s): E11.9 - TYPE 2 DIABETES MELLITUS WITHOUT COMPLICATIONS Qualifiers: Diabetes mellitus type: type 2 Diabetes mellitus emt intermediate insulin use: without residential use Diabetes mellitus complication status: with unspecified complications Qualified Code(s): E11.8 - Type 2 diabetes mellitus with unspecified complications (6) Hypertension Code(s): I10 - ESSENTIAL (PRIMARY) HYPERTENSION Qualifiers: Hypertension type: essential hypertension Qualified Code(s): I10 - Essential (primary) hypertension (7) Parkinson disease Code(s): G20 - PARKINSON'S DISEASE (8) Schizophrenia Code(s): F20.9 - SCHIZOPHRENIA, UNSPECIFIED Qualifiers: Schizophrenia type: unspecified Qualified Code(s): F20.9 - Schizophrenia, unspecified Assessment/Plan Stable Unable to go back to [facility] due to issues -- No admitting staff at [facility] as per [facility]. Likely will be going tomorrow Discussed with nursing staff
[2018-09-07] MEDS: SENNOSIDES 8.6MG TABLET (FP) PO SCH (21:38)
[2018-09-07] MEDS: ATORVASTATIN CA 10 MG TABLET (FP) PO SCH (21:38)
[2018-09-07] MEDS: OLANZapine 10 MG TABLET PO SCH (21:38)
[2018-09-07] MEDS: INSULIN (LEVEMIR) 100 UNITS/ML UNITS SQ SCH (23:20)
[2018-09-08 05:56] VITALS: TEMP 98
[2018-09-08] MEDS: INSULIN SLIDING SCALE (NOVOLOG) 1 VIAL SQ SCH ×2 (06:21→11:13)
[2018-09-08 07:57] VITALS: BP 155/86; PULSE 60
[2018-09-08] MEDS ORDERED: PT OWN MED DRAWER 7, Y5N ONE (08:35)
--- NOTE | 2018-09-08 08:37 | PN ---
Progress Note (short form) - Note Progress Note: No distress Awaiting for transfer to [facility] today Vital Signs - 24 hr 09/07/18 09/07/18 09/07/18 08:47 10:00 15:03 Temperature 98.5 F 99.2 F Pulse Rate 61 55 L Respiratory 20 20 20 Rate Blood Pressure 159/79 152/69 O2 Sat by Pulse 96 Oximetry (%) 09/07/18 09/07/18 09/07/18 18:00 20:34 22:00 Temperature 99.2 F 98.8 F Pulse Rate 55 L 57 L Respiratory 20 20 20 Rate Blood Pressure 152/71 152/74 O2 Sat by Pulse 96 Oximetry (%) 09/08/18 09/08/18 09/08/18 01:26 05:54 07:55 Temperature 98.4 F 98.0 F 98.0 F Pulse Rate 60 68 60 Respiratory 18 18 18 Rate Blood Pressure 158/82 118/55 L 155/86 O2 Sat by Pulse Oximetry (%) Current Medications Generic Name Dose Route Start Last Admin Trade Name Freq PRN Reason Stop Dose Admin Acetaminophen 650 mg 09/06/18 00:45 09/06/18 22:17 Tylenol - PO 650 mg Q4H PRN Administration PAIN LEVEL 6-10 Albuterol Sulfate 1 amp 09/04/18 14:03 Ventolin 0.083% Nebulizer Soln - NEB Q6H PRN ASTHMA Aspirin 81 mg 09/05/18 10:00 09/07/18 09:53 Asa - PO 81 mg DAILY [facility] Administration Atorvastatin Calcium 10 mg 09/04/18 22:00 09/07/18 21:38 Lipitor - PO 10 mg HS [facility] Administration Carbamazepine 200 mg 09/04/18 22:00 09/07/18 21:38 Tegretol - PO 200 mg BID [facility] Administration Furosemide 40 mg 09/05/18 10:00 09/07/18 09:53 Lasix - PO 40 mg DAILY [facility] Administration Heparin Sodium (Porcine) 5,000 unit 09/05/18 22:00 09/07/18 21:39 Heparin - SQ 5,000 unit BID [facility] Administration Insulin Aspart 1 vial 09/04/18 16:30 09/08/18 06:21 Novolog Vial Sliding Scale - SQ Not Given TIDAC [facility] Protocol Insulin Detemir 28 units 09/04/18 22:00 09/07/18 23:20 Levemir Vial SQ Not Given HS [facility] Lisinopril 40 mg 09/05/18 10:00 09/07/18 09:53 Prinivil PO 40 mg DAILY [facility] Administration Metoprolol Tartrate 25 mg 09/05/18 10:00 09/07/18 09:53 Lopressor - PO 25 mg DAILY [facility] Administration Olanzapine 20 mg 09/04/18 22:00 09/07/18 21:38 Zyprexa - PO 20 mg HS [facility] Administration Ranitidine HCl 150 mg 09/05/18 10:00 09/07/18 09:53 Zantac - PO 150 mg DAILY [facility] Administration Rivastigmine Tartrate 4.5 mg 09/04/18 22:00 09/07/18 21:38 Exelon (Nf) - PO 4.5 mg BID [facility] Administration Senna 1 tab 09/04/18 22:00 09/07/18 21:38 Senna - PO 1 tab HS [facility] Administration Laboratory Results - last 24 hr 09/07/18 09/07/18 09/07/18 11:07 16:07 21:35 POC Glucometer 114 89 88 09/08/18 05:50 POC Glucometer 106 S1 and S2 regular, lungs clear Abdomensoft nontender No edema plan Clinically stable for discharge, continue with the above medications See detailed discharge summary
[2018-09-08] MEDS: HEPARIN NA (PORCINE) 5,000 UNITS/ML 1ML VIAL SQ SCH (09:11)
[2018-09-08] MEDS: RIVASTIGMINE TARTRATE 1.5 MG CAPSULE PO SCH (09:11)
[2018-09-08] MEDS: RANITIDINE HCL 150 MG TABLET (FP) PO SCH (09:12)
[2018-09-08] MEDS: METOPROLOL TARTRATE 25 MG TABLET (FP) PO SCH (09:12)
[2018-09-08] MEDS: LISINOPRIL 20 MG TABLET (FP) PO SCH (09:12)
[2018-09-08] MEDS: ASPIRIN 81 MG CHEWABLE TABLETS PO SCH (09:12)
[2018-09-08] MEDS: FUROSEMIDE 40 MG TABLET (FP) PO SCH (09:12)
[2018-09-08] MEDS: carBAMazepine 200 MG TABLET PO SCH (09:12)
== END 2018-09-08 11:31 ==
LOC: JER 09:40 → JERBED 13:03 → J7W 14:53
PROVIDERS: ADMIT Internal Medicine; ATTEND Internal Medicine
PROC: 3E013GC Introduction of Other Therapeutic Substance into Subcutaneous Tissue, Percutaneous Approach (ICD-10-PCS; principal; 2018-09-04)
DX: R41.82 Altered mental status, unspecified (principal); R50.9 Fever, unspecified; R53.1 Weakness; I10 Essential (primary) hypertension; E78.5 Hyperlipidemia, unspecified; E10.8 Type 1 diabetes mellitus with unspecified complications; G20 Parkinson's disease; F02.80 Dementia in other diseases classified elsewhere, unspecified severity, without behavioral disturbance, psychotic disturbance, mood disturbance, and anxiety; F41.9 Anxiety disorder, unspecified; F32.9 Major depressive disorder, single episode, unspecified; F20.9 Schizophrenia, unspecified; J44.9 Chronic obstructive pulmonary disease, unspecified; N28.9 Disorder of kidney and ureter, unspecified; Z79.82 Long term (current) use of aspirin; Z79.4 Long term (current) use of insulin
CPT/HCPCS: 36415; 70450-TC; 71045-TC-FY; 71250-TC; 76775-TC; 80053; 81003; 82803; 82962; 83605; 83735; 84100; 84439; 84443; 84484; 85025; 85610; 85730; 87040; 87086; 87804; 93005; 93010; 96372; 99284-25; G0378; J1644

== ENCOUNTER 2018-10-21 22:50 | Observation (INO) | payer OTHER ==
[2018-10-21 23:38] VITALS: BMI 32.5
[2018-10-22] MEDS ORDERED: ASPIRIN 81 MG CHEWABLE TABLETS PO ONE (00:04)
--- NOTE | 2018-10-22 00:04 | PDOC ---
History of Present Illness - General Chief Complaint: Chest Pain Stated Complaint: CHEST PAIN Time Seen by Provider: 10/21/18 23:40 Past History - Past Medical History Allergies/Adverse Reactions: Allergies Allergy/AdvReac Type Severity Reaction Status Date / Time No Known Allergies Allergy Verified 10/21/18 23:38 Home Medications: Ambulatory Orders Albuterol 0.083% Nebulizer Ashley [Ventolin 0.083% Nebulizer Soln -] 1 amp IN QID PRN 09/04/18 Aspirin 81 mg PO DAILY 09/04/18 Atorvastatin Calcium [Lipitor] 10 mg PO HS 09/04/18 Carbamazepine [Tegretol -] 200 mg PO BID 09/04/18 Furosemide [Lasix -] 40 mg PO DAILY 09/04/18 Haloperidol Decanoate [Haldol Decanoate (Long-Acting) -] 100 mg IM MONTHLY 09/04 Insulin Glargine,Hum.rec.anlog [Lantus] 28 unit SQ HS 09/04/18 Insulin Lispro [Humalog Kwikpen U-100] unit SQ TID 09/04/18 Lisinopril [Zestril] 40 mg PO DAILY 09/04/18 Magnesium Hydrox 2400MG/30Ml [Milk of Magnesia -] 30 ml PO ASDIR 09/04/18 Metoprolol Tartrate [Lopressor -] 25 mg PO DAILY 09/04/18 Nystatin 30 gm TP BID 09/04/18 Olanzapine [Zyprexa] 20 mg PO HS 09/04/18 Ranitidine [Zantac -] 150 mg PO DAILY 09/04/18 Rivastigmine Tartrate [Exelon (Nf) -] 4.5 mg PO BID 09/04/18 Sennosides [Senno] 8.6 mg PO HS 09/04/18 Tamsulosin HCl [Flomax -] 0.4 mg PO DAILY 09/04/18 Acetaminophen [Tylenol .Regular Strength -] 650 mg PO Q4H PRN tablet 09/06/18 Heparin - 5,000 unit SQ BID vial 09/06/18 Anemia: No COPD: Yes Dementia: Yes Diabetes: Yes HTN: Yes Psychiatric Problems: Yes (SCHIZOPHRENIA, BIPOLAR,ANXIETY,) - Immunization History Immunization Up to Date: Yes - Suicide/Smoking/Psychosocial Hx Smoking History: Never smoked Have you smoked in the past 12 months: No Number of Cigarettes Smoked Daily: 0 Cigars Per Day: 0 Information on smoking cessation initiated: No Hx Alcohol Use: No Drug/Substance Use Hx: No Substance Use Type: None Hx Substance Use Treatment: No *Physical Exam - Vital Signs Last Vital Signs Temp Pulse Resp BP Pulse Ox 98.8 F 58 L 13 172/90 H 99 10/21/18 22:50 10/21/18 22:50 10/21/18 22:50 10/21/18 22:50 10/21/18 22:50 *DC/Admit/Observation/Transfer - Discharge Dispostion Condition at time of disposition: Fair - Referrals Referrals: Molly Santiago MD [Primary Care Provider] - - Patient Instructions - Post Discharge Activity
[2018-10-22] MEDS ORDERED: ACETAMINOPHEN 325 MG TABLET (FP) PO ONE (00:12)
[2018-10-22] MEDS ORDERED: ACETAMINOPHEN 325 MG TABLET (FP) ONE (00:21)
[2018-10-22] MEDS ORDERED: ASPIRIN 81 MG CHEWABLE TABLETS ONE (00:21)
[2018-10-22 00:25] LABS: BASO % 0.6 % (0-2.0); EOS % 3.3 % (0-4.5); HEMATOCRIT 34.5 % (32.4-45.2); HEMOGLOBIN 11.4 GM/dL (10.7-15.3); LYMPH % 44.8 % (8-40); MCH 26.3 pg (25.7-33.7); MCHC 33.1 g/dl (32.0-36.0); MEAN CELL VOLUME 79.5 fl (80-96); MONO % 10.9 % (3.8-10.2); NEUT % 40.4 % (42.8-82.8); PLATELET COUNT 268 K/MM3 (134-434); RBC 4.34 M/mm3 (3.60-5.2); RDW 15.3 % (11.6-15.6); WHITE BLOOD COUNT 7.2 K/mm3 (4.0-10.0)
[2018-10-22 00:38] LABS: INR 0.97 (0.83-1.09); PROTHROMBIN TIME (PATIENT) 11.5 SEC (9.7-13.0)
[2018-10-22 00:53] LABS: ALBUMIN 2.9 g/dl (3.4-5.0); ALK PHOS 71 U/L (45-117); ANION GAP 5 MMOL/L (8-16); BILIRUBIN,TOTAL 0.3 mg/dL (0.2-1); BLOOD UREA NITROGEN 19 mg/dL (7-18); CALCIUM 9.1 mg/dL (8.5-10.1); CHLORIDE 106 mmol/L (98-107); CO2 29 mmol/L (21-32); CREATININE 1.1 mg/dL (0.55-1.3); GLUCOSE,RANDOM 84 mg/dL (74-106); POTASSIUM 4.4 mmol/L (3.5-5.1); SGOT/AST 21 U/L (15-37); SGPT/ALT 21 U/L (13-61); SODIUM 140 mmol/L (136-145); TOT PROT 7.4 g/dl (6.4-8.2)
[2018-10-22] MEDS ORDERED: OLANZapine 10 MG TABLET PO STA (01:11)
[2018-10-22] MEDS ORDERED: HALOPERIDOL LACTATE 5 MG/ML IM ONE ×2 (01:23→01:32)
[2018-10-22] MEDS ORDERED: OLANZapine 10 MG TABLET ONE (01:32)
--- NOTE | 2018-10-22 02:29 | PDOC ---
Documentation entered by Romelia Llamas SCRIBE, acting as scribe for Florence Harmon MD. Florence Harmon MD: This documentation has been prepared by the Farhad phillips Daisy, SCRIBE, under my direction and personally reviewed by me in its entirety. I confirm that the documentation accurately reflects all work, treatment, procedures, and medical decision making performed by me. History of Present Illness - General Chief Complaint: Chest Pain Stated Complaint: CHEST PAIN Time Seen by Provider: 10/21/18 23:40 History Source: Patient Exam Limitations: No Limitations - History of Present Illness Initial Comments: 10/22/18 01:03 The patient is a 68YOF with a PMH of dementia, Parkinson's Disease, DM, HTN, and schizophrenia sent in via EMS for left shoulder pain radiating to the neck/ jaw? that began a few days ago. No evidence of trauma to the left shoulder. Denies cp, sob, N/V/D/C. Past History - Past Medical History Allergies/Adverse Reactions: Allergies Allergy/AdvReac Type Severity Reaction Status Date / Time No Known Allergies Allergy Verified 10/21/18 23:38 Home Medications: Ambulatory Orders Albuterol 0.083% Nebulizer Ashley [Ventolin 0.083% Nebulizer Soln -] 1 amp IN QID PRN 09/04/18 Aspirin 81 mg PO DAILY 09/04/18 Atorvastatin Calcium [Lipitor] 10 mg PO HS 09/04/18 Carbamazepine [Tegretol -] 200 mg PO BID 09/04/18 Furosemide [Lasix -] 40 mg PO DAILY 09/04/18 Haloperidol Decanoate [Haldol Decanoate (Long-Acting) -] 100 mg IM MONTHLY 09/04 Insulin Glargine,Hum.rec.anlog [Lantus] 28 unit SQ HS 09/04/18 Insulin Lispro [Humalog Kwikpen U-100] unit SQ TID 09/04/18 Lisinopril [Zestril] 40 mg PO DAILY 09/04/18 Magnesium Hydrox 2400MG/30Ml [Milk of Magnesia -] 30 ml PO ASDIR 09/04/18 Metoprolol Tartrate [Lopressor -] 25 mg PO DAILY 09/04/18 Nystatin 30 gm TP BID 09/04/18 Olanzapine [Zyprexa] 20 mg PO HS 09/04/18 Ranitidine [Zantac -] 150 mg PO DAILY 09/04/18 Rivastigmine Tartrate [Exelon (Nf) -] 4.5 mg PO BID 09/04/18 Sennosides [Senno] 8.6 mg PO HS 09/04/18 Tamsulosin HCl [Flomax -] 0.4 mg PO DAILY 09/04/18 Acetaminophen [Tylenol .Regular Strength -] 650 mg PO Q4H PRN tablet 09/06/18 Heparin - 5,000 unit SQ BID vial 09/06/18 Anemia: No COPD: Yes Dementia: Yes Diabetes: Yes HTN: Yes Psychiatric Problems: Yes (SCHIZOPHRENIA, BIPOLAR,ANXIETY,) - Immunization History Immunization Up to Date: Yes - Suicide/Smoking/Psychosocial Hx Smoking History: Never smoked Have you smoked in the past 12 months: No Number of Cigarettes Smoked Daily: 0 Cigars Per Day: 0 Information on smoking cessation initiated: No Hx Alcohol Use: No Drug/Substance Use Hx: No Substance Use Type: None Hx Substance Use Treatment: No Review of Systems - Review of Systems Able to Perform ROS?: Yes Comments:: 10/22/18 01:09 ADULT ROS GENERAL/CONSTITUTIONAL: No fever or chills. No weakness. HEAD, EYES, EARS, NOSE AND THROAT: No change in vision. No ear pain or discharge. No sore throat. CARDIOVASCULAR: No chest pain or shortness of breath. RESPIRATORY: No cough, wheezing, or hemoptysis. GASTROINTESTINAL: No nausea, vomiting, diarrhea or constipation. GENITOURINARY: No dysuria, frequency, or change in urination. MUSCULOSKELETAL: No muscle swelling or pain. No back pain. (+) Left shoulder pain. (+) Neck/jaw? pain SKIN: No rash NEUROLOGIC: No headache, vertigo, loss of consciousness, or change in strength/ sensation. ENDOCRINE: No increased thirst. No abnormal weight change. HEMATOLOGIC/LYMPHATIC: No anemia, easy bleeding, or history of blood clots. ALLERGIC/IMMUNOLOGIC: No hives or skin allergy. *Physical Exam - Vital Signs Last Vital Signs Temp Pulse Resp BP Pulse Ox 98.8 F 58 L 13 172/90 H 99 10/21/18 22:50 10/21/18 22:50 10/21/18 22:50 10/21/18 22:50 10/21/18 22:50 - Physical Exam Comments: 10/22/18 01:05 ADULT EXAM GENERAL: alert, conversant, poor historian EYES: PERRLA, EOMI, sclera anicteric, conjunctiva clear ENT: Auricles normal inspection, hearing grossly normal, nares patent, oropharynx clear without exudates. Moist mucosa NECK: Normal ROM, supple, no lymphadenopathy, JVD, or masses LUNGS: Breath sounds equal, clear to auscultation bilaterally. No wheezes, and no crackles HEART: Regular rate and rhythm, normal S1 and S2, no murmurs, rubs or gallops ABDOMEN: protuberant abdomen, soft, nontender, normoactive bowel sounds. No guarding, no rebound. No masses EXTREMITIES: Normal range of motion, no edema. No clubbing or cyanosis. No cords , erythema, or tenderness NEUROLOGICAL: Cranial nerves II through XII grossly intact. Normal speech, normal gait SKIN: Warm, Dry, normal turgor, no rashes or lesions noted. Heart Score/ECG Review - History History: Slightly suspicious - Electrocardiogram EKG: Non specific repolarization disturbance - Age Age: >/= 65 - Risk Factors Risk Factors Heart Score: Yes Hx Hypertension, Yes Hx Diabetes Based on the list above the patient has:: 1-2 risk factors - Troponin Troponin: </= normal limit - Score Heart Score - Total: 4 - ECG Intrepretation Rhythm: Regular Rhythm ED Treatment Course - LABORATORY CBC & Chemistry Diagram: 10/22/18 00:16 10/22/18 00:16 - ADDITIONAL ORDERS Additional order review: Laboratory Results 10/22/18 10/22/18 00:16 00:16 PT with INR 11.50 INR 0.97 Sodium 140 Potassium 4.4 Chloride 106 Carbon Dioxide 29 Anion Gap 5 L BUN 19 H Creatinine 1.1 Creat Clearance w eGFR 49.10 Random Glucose 84 Calcium 9.1 Magnesium 2.0 Total Bilirubin 0.3 AST 21 ALT 21 Alkaline Phosphatase 71 Creatine Kinase 62 Troponin I < 0.02 Total Protein 7.4 Albumin 2.9 L 10/22/18 00:16 RBC 4.34 MCV 79.5 L MCHC 33.1 RDW 15.3 MPV 8.0 Neutrophils % 40.4 L Lymphocytes % 44.8 H Monocytes % 10.9 H Eosinophils % 3.3 Basophils % 0.6 - RADIOLOGY Radiology Studies Ordered: Category Date Time Status CERVICAL SPINE CT W/O CONTR [CT] Stat CT Scan 10/22/18 00:11 Ordered CHEST X-RAY PORTABLE* [RAD] Stat Radiology 10/22/18 00:04 Taken - Medications Given in the ED: ED Medications Discontinued Medications Generic Name Dose Route Start Last Admin Trade Name Geno PRN Reason Stop Dose Admin Acetaminophen 650 mg 10/22/18 00:12 10/22/18 00:33 Tylenol - PO 10/22/18 00:13 650 mg ONCE ONE Administration Aspirin 162 mg 10/22/18 00:04 10/22/18 00:33 Asa - PO 10/22/18 00:05 Not Given ONCE ONE Haloperidol 5 mg 10/22/18 01:23 10/22/18 01:38 Haldol Injection (Fast Acting) - IM 10/22/18 01:24 5 mg ONCE ONE Administration Olanzapine 20 mg 10/22/18 01:11 10/22/18 01:38 Zyprexa - PO 10/22/18 01:12 20 mg ONCE STA Administration Medical Decision Making - Medical Decision Making 10/22/18 01:21 68 yo female [facility] for left sided chest pain -first troponin is negative -ekg is nsr@ 69bpm, LVH,inverted t waves [id number] 10/22/18 02:27 case discussed w Florence Figueroa PCP at [facility] admit tele OBS *DC/Admit/Observation/Transfer Diagnosis at time of Disposition: Chest pain Qualifiers: Chest pain type: unspecified Qualified Code(s): R07.9 - Chest pain, unspecified Hypertension Qualifiers: Hypertension type: unspecified Qualified Code(s): I10 - Essential (primary) hypertension Schizophrenia Qualifiers: Schizophrenia type: other Qualified Code(s): F20.89 - Other schizophrenia; F20.8 - Other schizophrenia Dementia Qualifiers: Dementia type: unspecified type Dementia behavioral disturbance: with behavioral disturbance Qualified Code(s): F03.91 - Unspecified dementia with behavioral disturbance Diabetes Qualifiers: Diabetes mellitus type: type 1 Diabetes mellitus complication status: with other specified complication Qualified Code(s): E10.69 - Type 1 diabetes mellitus with other specified complication - Discharge Dispostion Condition at time of disposition: Fair Decision to Admit order: Yes Decision to Admit order Date/Time: Decision to Admit Order Category Date Time Status Decision to Admit to Hospital Routine Admission 10/22/18 02:25 Ordered - Referrals Referrals: Molly Santiago MD [Primary Care Provider] - - Patient Instructions - Post Discharge Activity
--- NOTE | 2018-10-22 03:08 | HP ---
Admitting History and Physical - Primary Care Physician PCP: Molly Santiago - Admission Chief Complaint: Chest Pain History of Present Illness: This is a 68 y/o woman from [facility] with a past medical history of HTN, DM, COPD, Dementia, Depression, Schizophrenia, Anxiety, Parkinson's Disease. Who presents to the ED for chest pain. History was obtained from medical record. Patient has Dementia unable to provide HPI. Patient denies fever, chills, LEIGH, dizziness, palpitations, AP, N/V/D. 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: Dementia Cardiovascular: Yes: HTN, Hyperlipdemia Pulmonary: Yes: COPD Psych: Yes: Bipolar, Schizophrenia Endocrine: Yes: Diabetes Mellitus - Smoking History Smoking history: Never smoked Have you smoked in the past 12 months: No Aproximately how many cigarettes per day: 0 - Alcohol/Substance Use Hx Alcohol Use: No - Social History Usual Living Arrangement: Yes: Detention ADL: Support Services History of Recent Travel: No Home Medications - Allergies Allergies/Adverse Reactions: Allergies Allergy/AdvReac Type Severity Reaction Status Date / Time No Known Allergies Allergy Verified 10/21/18 23:38 - Home Medications Home Medications: Ambulatory Orders Albuterol 0.083% Nebulizer Ashley [Ventolin 0.083% Nebulizer Soln -] 1 amp IN QID PRN 09/04/18 Aspirin 81 mg PO DAILY 09/04/18 Atorvastatin Calcium [Lipitor] 10 mg PO HS 09/04/18 Insulin Glargine,Hum.rec.anlog [Lantus] 28 unit SQ HS 09/04/18 Insulin Lispro [Humalog Kwikpen U-100] 0 unit SQ TID 09/04/18 Lisinopril [Zestril] 40 mg PO DAILY 09/04/18 Metoprolol Tartrate [Lopressor -] 25 mg PO DAILY 09/04/18 Sennosides [Senno] 2 tab PO HS 09/04/18 Tamsulosin HCl [Flomax -] 0.4 mg PO DAILY 09/04/18 Acetaminophen [Tylenol .Regular Strength -] 650 mg PO Q4H PRN tablet 09/06/18 Heparin - 5,000 unit SQ BID vial 09/06/18 Atorvastatin Ca [Lipitor] 10 mg PO HS 10/22/18 Carbamazepine [Carbamazepine ER] 200 mg PO BID 10/22/18 Docusate Sodium [Colace -] 100 mg PO DAILY 10/22/18 Ranitidine HCl [Zantac] 150 mg PO HS 10/22/18 Family Disease History - Family Disease History Family History: Unable to Obtain Review of Systems Unable to obtain ROS, reason: Dementia Physical Examination Vital Signs: Vital Signs Temperature 98.8 F 10/21/18 22:50 Pulse Rate 58 L 10/21/18 22:50 Respiratory Rate 13 10/21/18 22:50 Blood Pressure 172/90 H 10/21/18 22:50 O2 Sat by Pulse Oximetry (%) 99 10/21/18 22:50 Constitutional: Yes: No Distress, Calm, Obese Eyes: Yes: Conjunctiva Clear, PERRL HENT: Yes: Atraumatic, Normocephalic, Other (Dry Mucousa) Neck: Yes: WNL, Supple, Trachea Midline Cardiovascular: Yes: WNL, Regular Rate and Rhythm, S1, S2 Respiratory: Yes: WNL, Regular, CTA Bilaterally Gastrointestinal: Yes: WNL, Normal Bowel Sounds, Soft, Abdomen, Obese Labs: CBC, BMP 10/22/18 00:16 10/22/18 00:16 Imaging - Results Chest X-ray: Report Reviewed, Image Reviewed EKG: Image Reviewed Problem List - Problems (1) Chest pain Code(s): R07.9 - CHEST PAIN, UNSPECIFIED Qualifiers: Chest pain type: unspecified Qualified Code(s): R07.9 - Chest pain, unspecified (2) Dementia Code(s): F03.90 - UNSPECIFIED DEMENTIA WITHOUT BEHAVIORAL DISTURBANCE Qualifiers: Dementia type: unspecified type Dementia behavioral disturbance: with behavioral disturbance Qualified Code(s): F03.91 - Unspecified dementia with behavioral disturbance (3) Diabetes Code(s): E11.9 - TYPE 2 DIABETES MELLITUS WITHOUT COMPLICATIONS Qualifiers: Diabetes mellitus type: type 1 Diabetes mellitus complication status: with other specified complication Qualified Code(s): E10.69 - Type 1 diabetes mellitus with other specified complication (4) Hypertension Code(s): I10 - ESSENTIAL (PRIMARY) HYPERTENSION Qualifiers: Hypertension type: unspecified Qualified Code(s): I10 - Essential (primary ) hypertension (5) Schizophrenia Code(s): F20.9 - SCHIZOPHRENIA, UNSPECIFIED Qualifiers: Schizophrenia type: other Qualified Code(s): F20.89 - Other schizophrenia; F20.8 - Other schizophrenia (6) CVA (cerebral vascular accident) Code(s): I63.9 - CEREBRAL INFARCTION, UNSPECIFIED (7) Chronic obstructive pulmonary disease Code(s): J44.9 - CHRONIC OBSTRUCTIVE PULMONARY DISEASE, UNSPECIFIED (8) Diastolic CHF Code(s): I50.30 - UNSPECIFIED DIASTOLIC (CONGESTIVE) HEART FAILURE (9) Hypercholesterolemia Code(s): E78.00 - PURE HYPERCHOLESTEROLEMIA, UNSPECIFIED (10) Parkinson disease Code(s): G20 - PARKINSON'S DISEASE (11) Renal insufficiency Code(s): N28.9 - DISORDER OF KIDNEY AND URETER, UNSPECIFIED Assessment/Plan This is a 68 y/o woman placed in Telemetry Observation for Chest Pain r/o ACS for further evaluation of their emergent condition. Plan: Admit to Tele Obs Cardiac Monitoring Serial Enzymes Appreciate Cardiology consult Echo in am EKG reviewed Chest Xray reviewed Fall precautions Continue home meds FEN- Replete lytes, Low Na Diet DVT ppx- SCDs, Heparin SQ Code Status: Full Code Dispo: Observation Addendum: Hold BP meds secondary to hypotension NS 500ml bolus x1 given Maintain MAP > 65 Visit type - Emergency Visit Emergency Visit: Yes ED Registration Date: 10/22/18 Care time: The patient presented to the Emergency Department on the above date and was hospitalized for further evaluation of their emergent condition. - New Patient This patient is new to me today: Yes Date on this admission: 10/22/18 - Critical Care Critical Care patient: No
[2018-10-22 06:40] LABS: HEMATOCRIT 32.1 % (32.4-45.2); HEMOGLOBIN 10.5 GM/dL (10.7-15.3); MCH 26.1 pg (25.7-33.7); MCHC 32.8 g/dl (32.0-36.0); MEAN CELL VOLUME 79.5 fl (80-96); MEAN PLT VOLUME 7.8 fl (7.5-11.1); PLATELET COUNT 262 K/MM3 (134-434); RBC 4.04 M/mm3 (3.60-5.2); RDW 15.4 % (11.6-15.6); WHITE BLOOD COUNT 5.2 K/mm3 (4.0-10.0)
[2018-10-22 07:05] LABS: ANION GAP 4 MMOL/L (8-16); BLOOD UREA NITROGEN 20 mg/dL (7-18); CHLORIDE 107 mmol/L (98-107); CO2 29 mmol/L (21-32); CREATININE 1.2 mg/dL (0.55-1.3); GLUCOSE,RANDOM 89 mg/dL (74-106); POTASSIUM 4.4 mmol/L (3.5-5.1); SODIUM 140 mmol/L (136-145)
[2018-10-22] MEDS ORDERED: SODIUM CHLORIDE 500 ML IV STA (07:06)
[2018-10-22 09:35] LABS: ANISOCYTOSIS 0; MACROCYTOSIS 0; PLATELET ESTIMATE NORMAL
--- NOTE | 2018-10-22 10:10 | PN ---
Progress Note (short form) - Note Progress Note: has chest pain on palpation no SOB coughing+ active smoker in [place] Vital Signs - 24 hr 10/21/18 10/22/18 10/22/18 22:50 06:00 06:58 Temperature 98.8 F Pulse Rate 58 L Pulse Rate [ 55 L Apical] Respiratory 13 22 H Rate Blood Pressure 172/90 H Blood Pressure 78/40 L [Left Arm] O2 Sat by Pulse 99 97 97 Oximetry (%) 10/22/18 10/22/18 10/22/18 07:20 07:24 07:34 Temperature Pulse Rate 47 L Pulse Rate [ 52 L 47 L Apical] Respiratory 22 H 22 H Rate Blood Pressure Blood Pressure 82/40 L 161/68 [Left Arm] O2 Sat by Pulse 100 100 Oximetry (%) 10/22/18 10/22/18 10/22/18 09:17 12:01 12:02 Temperature Pulse Rate Pulse Rate [ 57 L 57 L Apical] Respiratory 21 H 17 Rate Blood Pressure Blood Pressure 126/68 186/73 H [Left Arm] O2 Sat by Pulse 100 99 Oximetry (%) 10/22/18 12:39 Temperature Pulse Rate Pulse Rate [ 61 Apical] Respiratory 15 Rate Blood Pressure Blood Pressure 157/90 [Left Arm] O2 Sat by Pulse 97 Oximetry (%) Laboratory Results - last 24 hr 10/22/18 10/22/18 10/22/18 00:16 00:16 00:16 WBC 7.2 RBC 4.34 Hgb 11.4 Hct 34.5 MCV 79.5 L MCH 26.3 MCHC 33.1 RDW 15.3 Plt Count 268 MPV 8.0 Absolute Neuts (auto) 2.9 Neutrophils % 40.4 L Neutrophils % (Manual) Band Neutrophils % Lymphocytes % 44.8 H Lymphocytes % (Manual) Monocytes % 10.9 H Monocytes % (Manual) Eosinophils % 3.3 Eosinophils % (Manual) Basophils % 0.6 Basophils % (Manual) Myelocytes % (Man) Promyelocytes % (Man) Blast Cells % (Manual) Nucleated RBC % 0 Metamyelocytes Hypochromia Platelet Estimate Polychromasia Poikilocytosis Anisocytosis Microcytosis Macrocytosis PT with INR 11.50 INR 0.97 Sodium 140 Potassium 4.4 Chloride 106 Carbon Dioxide 29 Anion Gap 5 L BUN 19 H Creatinine 1.1 Creat Clearance w eGFR 49.10 Random Glucose 84 Calcium 9.1 Magnesium 2.0 Total Bilirubin 0.3 AST 21 ALT 21 Alkaline Phosphatase 71 Creatine Kinase 62 Troponin I < 0.02 Total Protein 7.4 Albumin 2.9 L 10/22/18 10/22/18 05:20 05:20 WBC 5.2 RBC 4.04 Hgb 10.5 L Hct 32.1 L MCV 79.5 L MCH 26.1 MCHC 32.8 RDW 15.4 Plt Count 262 MPV 7.8 Absolute Neuts (auto) Neutrophils % No Result Required. Neutrophils % (Manual) 37.9 L Band Neutrophils % 0.0 Lymphocytes % No Result Required. Lymphocytes % (Manual) 48.4 H Monocytes % Monocytes % (Manual) 10 Eosinophils % Eosinophils % (Manual) 1.6 Basophils % Basophils % (Manual) 2.4 H Myelocytes % (Man) 0 Promyelocytes % (Man) 0 Blast Cells % (Manual) 0 Nucleated RBC % 0 Metamyelocytes 0 Hypochromia 0 Platelet Estimate Normal Polychromasia 0 Poikilocytosis 0 Anisocytosis 0 Microcytosis 0 Macrocytosis 0 PT with INR INR Sodium 140 Potassium 4.4 Chloride 107 Carbon Dioxide 29 Anion Gap 4 L BUN 20 H Creatinine 1.2 Creat Clearance w eGFR 44.41 Random Glucose 89 Calcium 9.0 Magnesium Total Bilirubin AST ALT Alkaline Phosphatase Creatine Kinase Troponin I < 0.02 Total Protein Albumin S1 S2 RRR Lungs ronchi+ abd- soft, NT No edema Chest wall tenderness A/P chest pain -- likely costochondritis -- cardiac enzymes negative -- spoke with cardiology -- Echo pending COPD -- nebs -- O2 Thyroid nodule-- needs thyroid sono as outpt Problem List - Problems (1) Chest pain Code(s): R07.9 - CHEST PAIN, UNSPECIFIED Qualifiers: Chest pain type: unspecified Qualified Code(s): R07.9 - Chest pain, unspecified (2) Dementia Code(s): F03.90 - UNSPECIFIED DEMENTIA WITHOUT BEHAVIORAL DISTURBANCE Qualifiers: Dementia type: unspecified type Dementia behavioral disturbance: with behavioral disturbance Qualified Code(s): F03.91 - Unspecified dementia with behavioral disturbance (3) Diabetes Code(s): E11.9 - TYPE 2 DIABETES MELLITUS WITHOUT COMPLICATIONS Qualifiers: Diabetes mellitus type: type 1 Diabetes mellitus complication status: with other specified complication Qualified Code(s): E10.69 - Type 1 diabetes mellitus with other specified complication (4) Hypertension Code(s): I10 - ESSENTIAL (PRIMARY) HYPERTENSION Qualifiers: Hypertension type: unspecified Qualified Code(s): I10 - Essential (primary ) hypertension (5) Schizophrenia Code(s): F20.9 - SCHIZOPHRENIA, UNSPECIFIED Qualifiers: Schizophrenia type: other Qualified Code(s): F20.89 - Other schizophrenia; F20.8 - Other schizophrenia
--- NOTE | 2018-10-22 10:21 | CON.CARD ---
Consult Consult Specialty:: Cardiology Referred by:: Medicine Reason for Consultation:: chest pain - History of Present Illness Chief Complaint: chest pain History of Present Illness: 68F HTN, DM, COPD, Dementia, Depression, Schizophrenia, Anxiety, Parkinson's Disease p/w chest pain, L arm pain. Patient does not remember what happened yesterday, complains of pain all over her body. History obtained from medical record, reportedly had L sided chest/arm/neck pain, denies this now. 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: Dementia Cardio/Vascular: Yes: HTN, Hyperlipdemia Pulmonary: Yes: COPD Psych: Yes: Bipolar, Schizophrenia Endocrine: Yes: Diabetes Mellitus - Alcohol/Substance Use Hx Alcohol Use: No - Smoking History Smoking history: Never smoked Have you smoked in the past 12 months: No Aproximately how many cigarettes per day: 0 - Social History Usual Living Arrangement: [facility] ADL: Support Services History of Recent Travel: No Home Medications - Allergies Allergies/Adverse Reactions: Allergies Allergy/AdvReac Type Severity Reaction Status Date / Time No Known Allergies Allergy Verified 10/21/18 23:38 - Home Medications Home Medications: Ambulatory Orders Albuterol 0.083% Nebulizer Ashley [Ventolin 0.083% Nebulizer Soln -] 1 amp IN QID PRN 09/04/18 Aspirin 81 mg PO DAILY 09/04/18 Atorvastatin Calcium [Lipitor] 10 mg PO HS 09/04/18 Insulin Glargine,Hum.rec.anlog [Lantus] 28 unit SQ HS 09/04/18 Insulin Lispro [Humalog Kwikpen U-100] 0 unit SQ TID 09/04/18 Lisinopril [Zestril] 40 mg PO DAILY 09/04/18 Metoprolol Tartrate [Lopressor -] 25 mg PO DAILY 09/04/18 Sennosides [Senno] 2 tab PO HS 09/04/18 Tamsulosin HCl [Flomax -] 0.4 mg PO DAILY 09/04/18 Acetaminophen [Tylenol .Regular Strength -] 650 mg PO Q4H PRN tablet 09/06/18 Heparin - 5,000 unit SQ BID vial 09/06/18 Atorvastatin Ca [Lipitor] 10 mg PO HS 10/22/18 Carbamazepine [Carbamazepine ER] 200 mg PO BID 10/22/18 Docusate Sodium [Colace -] 100 mg PO DAILY 10/22/18 Ranitidine HCl [Zantac] 150 mg PO HS 10/22/18 Family Disease History - Family Disease History Family History: Unable to Obtain Review of Systems Unable to obtain ROS, reason: dementia Vital Signs: Vital Signs Temperature 98.8 F 10/21/18 22:50 Pulse Rate 57 L 10/22/18 09:17 Respiratory Rate 21 H 10/22/18 09:17 Blood Pressure 126/68 10/22/18 09:17 O2 Sat by Pulse Oximetry (%) 100 10/22/18 09:17 Constitutional: Yes: Well Nourished, No Distress, Calm Eyes: Yes: Conjunctiva Clear, EOM Intact HENT: Yes: Atraumatic, Normocephalic Neck: Yes: Supple, Trachea Midline Respiratory: Yes: Regular, CTA Bilaterally Gastrointestinal: Yes: Normal Bowel Sounds, Soft Cardiovascular: Yes: Regular Rate and Rhythm JVD: No Carotid Bruit: No PMI: Non-Displaced Heart Sounds: Yes: S1, S2 Musculoskeletal: No: Back Pain Extremities: No: Cold Edema: No Peripheral Pulses WNL: No Peripheral Pulses: 1+ Left Doralis Pedis, 1+ Right Dorsalis Pedis Integumentary: No: Jaundice Neurological: Yes: Alert, Confusion Psychiatric: No: Agitated - Other Data Labs, Other Data: CBC, BMP 10/22/18 05:20 10/22/18 05:20 INR, PTT INR 0.97 (0.83-1.09) 10/22/18 00:16 Troponin, BNP 10/22/18 10/22/18 00:16 05:20 Troponin I < 0.02 < 0.02 Troponin, BNP 10/22/18 10/22/18 00:16 05:20 Troponin I < 0.02 < 0.02 Assessment/Plan EKG: sinus, LVH with repol changes stable compared to prior tele: sinus, sinus tracie CXR: no acute process echo 2016 nl LV function, mild MR, mild TR, mild ao sclerosis chest pain - patient unable to give further hx but complains of pain all over body - EKG LVH with repol similar to prior, no ischemic changes, trop neg x2 - unlikely ACS - echo pending, if benign findings no further cardiac testing as inpatient dementia - manage per primary HTN - cont home meds HLD - cont statin DM - manage per primary
--- NOTE | 2018-10-22 12:57 | EKG ---
Test Reason : Blood Pressure : / mmHG Vent. Rate : 060 BPM Atrial Rate : 060 BPM P-R Int : 200 ms QRS Dur : 118 ms QT Int : 444 ms P-R-T Axes : 028 -56 109 degrees QTc Int : 444 ms POOR DATA QUALITY, INTERPRETATION MAY BE ADVERSELY AFFECTED NORMAL SINUS RHYTHM LEFT ANTERIOR FASCICULAR BLOCK LEFT VENTRICULAR HYPERTROPHY WITH QRS WIDENING AND REPOLARIZATION ABNORMALITY CANNOT RULE OUT SEPTAL INFARCT , AGE UNDETERMINED ABNORMAL ECG WHEN COMPARED WITH ECG OF 04-SEP-2018 11:19, MINIMAL CRITERIA FOR SEPTAL INFARCT ARE NOW PRESENT T WAVE INVERSION NO LONGER EVIDENT IN INFERIOR LEADS Confirmed by TORY PATEL, PIA ([id number]) on 10/22/2018 12:56:58 PM Referred By: Confirmed By:PIA SPEARS MD
[2018-10-22] MEDS ORDERED: ALBUTEROL SO4 0.083% IH SOL 2.5 MG/3 ML VIAL.NEB. NEB PRN (13:43)
[2018-10-22] MEDS ORDERED: ACETAMINOPHEN 325 MG TABLET (FP) PO PRN (13:43)
[2018-10-22] MEDS ORDERED: ALBUTEROL SO4 0.083% IH SOL 2.5 MG/3 ML VIAL.NEB. NEB ONE (15:46)
[2018-10-22 16:29] VITALS: TEMP 100.6
[2018-10-22] MEDS ORDERED: INSULIN SLIDING SCALE (NOVOLOG) 1 VIAL SQ SCH (16:30)
--- NOTE | 2018-10-22 18:21 | DS ---
Physical Examination Vital Signs: Vital Signs Temperature 100.6 F H 10/22/18 16:28 Pulse Rate 99 H 10/22/18 18:15 Respiratory Rate 23 H 10/22/18 18:15 Blood Pressure 130/87 10/22/18 18:15 O2 Sat by Pulse Oximetry (%) 96 10/22/18 16:28 Labs: CBC, BMP 10/22/18 05:20 10/22/18 05:20 Discharge Summary Reason For Visit: DIABETES MELLITUS, ALTERED MENTAL STATUS, CHEST Current Active Problems Chest pain (Acute) Dementia (Acute) Diabetes (Acute) Hypertension (Acute) Schizophrenia (Acute) Condition: Fair - Instructions - Home Medications Comprehensive Discharge Medication List: Ambulatory Orders Albuterol 0.083% Nebulizer Ashley [Ventolin 0.083% Nebulizer Soln -] 1 amp IN QID PRN 09/04/18 Aspirin 81 mg PO DAILY 09/04/18 Atorvastatin Calcium [Lipitor] 10 mg PO HS 09/04/18 Insulin Glargine,Hum.rec.anlog [Lantus] 28 unit SQ HS 09/04/18 Insulin Lispro [Humalog Kwikpen U-100] 0 unit SQ TID 09/04/18 Lisinopril [Zestril] 40 mg PO DAILY 09/04/18 Metoprolol Tartrate [Lopressor -] 25 mg PO DAILY 09/04/18 Sennosides [Senno] 2 tab PO HS 09/04/18 Tamsulosin HCl [Flomax -] 0.4 mg PO DAILY 09/04/18 Acetaminophen [Tylenol .Regular Strength -] 650 mg PO Q4H PRN tablet 09/06/18 Heparin - 5,000 unit SQ BID vial 09/06/18 Atorvastatin Ca [Lipitor] 10 mg PO HS 10/22/18 Carbamazepine [Carbamazepine ER] 200 mg PO BID 10/22/18 Docusate Sodium [Colace -] 100 mg PO DAILY 10/22/18 Ranitidine HCl [Zantac] 150 mg PO HS 10/22/18
[2018-10-22 19:06] VITALS: BP 123/73; PULSE 103
[2018-10-22] MEDS ORDERED: HEPARIN NA (PORCINE) 5,000 UNITS/ML 1ML VIAL SQ SCH (22:00)
[2018-10-22] MEDS ORDERED: INSULIN (LEVEMIR) 100 UNITS/ML UNITS SQ SCH (22:00)
[2018-10-22] MEDS ORDERED: SENNOSIDES 8.6MG TABLET (FP) PO SCH (22:00)
[2018-10-22] MEDS ORDERED: ATORVASTATIN CA 10 MG TABLET (FP) PO SCH (22:00)
[2018-10-22] MEDS ORDERED: carBAMazepine XR 200 MG TAB.ER.12H PO SCH (22:00)
[2018-10-22] MEDS ORDERED: RANITIDINE HCL 150 MG TABLET (FP) PO SCH (22:00)
[2018-10-23] MEDS ORDERED: DOCUSATE SODIUM 100 MG CAPSULE (FP) PO SCH (10:00)
[2018-10-23] MEDS ORDERED: ASPIRIN 81 MG CHEWABLE TABLETS PO SCH (10:00)
[2018-10-23] MEDS ORDERED: METOPROLOL TARTRATE 25 MG TABLET (FP) PO SCH (10:00)
[2018-10-23] MEDS ORDERED: LISINOPRIL 20 MG TABLET (FP) PO SCH (10:00)
== END 2018-10-22 19:46 ==
LOC: JER 22:50 → JERBED 10-22 02:25
PROVIDERS: ADMIT Internal Medicine; ATTEND Internal Medicine
PROC: 3E0337Z Introduction of Electrolytic and Water Balance Substance into Peripheral Vein, Percutaneous Approach (ICD-10-PCS; principal; 2018-10-22)
PROC: 3E0F7GC Introduction of Other Therapeutic Substance into Respiratory Tract, Via Natural or Artificial Opening (ICD-10-PCS; 2018-10-22)
DX: R07.9 Chest pain, unspecified (principal); E11.9 Type 2 diabetes mellitus without complications; G20 Parkinson's disease; F02.80 Dementia in other diseases classified elsewhere, unspecified severity, without behavioral disturbance, psychotic disturbance, mood disturbance, and anxiety; F20.9 Schizophrenia, unspecified; J44.9 Chronic obstructive pulmonary disease, unspecified; I11.0 Hypertensive heart disease with heart failure; Z86.73 Personal history of transient ischemic attack (TIA), and cerebral infarction without residual deficits; I50.30 Unspecified diastolic (congestive) heart failure; E78.00 Pure hypercholesterolemia, unspecified; N28.9 Disorder of kidney and ureter, unspecified; F17.210 Nicotine dependence, cigarettes, uncomplicated
CPT/HCPCS: 36415; 71045-TC-FY; 72125-TC; 80048; 80053; 82550; 82962; 83735; 84484; 85025; 85610; 93005; 93010; 94640; 96360; 96372; 99285-25; G0378